=== PATIENT | male | born 1960 | race Caucasian/White ===

== ENCOUNTER 2022-07-15 21:02 | Emergency (ER) | payer OTHER, SELFPAY ==
--- NOTE | 2022-07-15 | ECG_ITS ---
Test Reason : HTN Blood Pressure : / mmHG Vent. Rate : 075 BPM Atrial Rate : 075 BPM P-R Int : 144 ms QRS Dur : 130 ms QT Int : 420 ms P-R-T Axes : 039 -54 099 degrees QTc Int : 469 ms Normal sinus rhythm Possible Left atrial enlargement Right bundle branch block Left anterior fascicular block Bifascicular block Abnormal ECG No previous ECGs available Referred By: Generic ED Physician Electronically Signed By:DARON FREITAS
--- NOTE | ~2022-07-15 | XR_ITS ---
EXAMINATION: XR CHEST CLINICAL INFORMATION: Shortness of breath. COMPARISON: None TECHNIQUE: 2 views of the chest were obtained. FINDINGS: A nodular density overlies the right upper lobe. The lungs are otherwise clear. There are no pleural effusions. The heart and mediastinal structures are unremarkable XR/XR chest 2V IMPRESSION: Nodular density overlying the right upper lobe appears to represent summation artifact of overlapping structures including degenerative changes in the right anterior first anterior costochondral junction. Additional apical lordotic and right oblique views of the chest are recommended to rule out underlying abnormality as no previous study was available for comparison. No acute cardiopulmonary process.
[2022-07-15 21:07] VITALS: BP 190/98; PULSE 92; RESP 16; TEMP 36.4; O2SAT 97; BMI 38.0
[2022-07-15 21:34] LABS: Basophils Absolute Auto 0.1 X10*3/uL (0.0-0.2); Basophils Percent Auto 0.7 % (0-2); Eosinophils Absolute Auto 0.3 X10*3/uL (0.0-0.4); Eosinophils Percent Auto 3.2 % (0-4); Hematocrit 45.8 % (42.0-52.0); Hemoglobin 15.3 g/dl (14.0-18.0); Imm Gran Abs Auto 0.03 X10*3/uL (0.00-0.03); Imm Gran Pct Auto 0.4 % (0.0-0.4); Lymphocytes Absolute Auto 2.3 X10*3/uL (1.2-4.9); Lymphocytes Percent Auto 26.9 % (20-40); MANUAL DIFF FLAG NO; Mean Corpuscular HGB Conc 33.4 g/dl (31.0-36.0); Mean Corpuscular Hemoglobin 29.7 pg (27.0-33.0); Mean Corpuscular Volume 88.9 fL (80.0-98.0); Mean Platelet Volume 9.7 fL (9.4-12.4); Monocytes Absolute Auto 0.9 X10*3/uL (0.1-1.2); Monocytes Percent Auto 10.7 % (2-11); Neutrophils Absolute Auto 4.9 x10*3/uL (2.0-8.3); Neutrophils Percent Auto 58.1 % (45-73); Platelet Count 247 X10*3/uL (160-400); Red Blood Count 5.15 X10*6/uL (4.60-5.80); White Blood Count 8.4 X10*3/uL (4.8-10.8)
[2022-07-15 21:48] LABS: Alanine Aminotransferase 68 U/L (0-40); Albumin Level 3.7 g/dL (3.5-5.0); Alkaline Phosphatase 62 U/L (39-117); Anion Gap 11 (12-20); Aspartate Amino Transferase 51 U/L (5-37); Bilirubin Total 0.6 mg/dL (0.0-1.0); Blood Urea Nitrogen 18 mg/dL (9-16); Carbon Dioxide 26 mmol/L (22-29); Chloride 111 mmol/L (96-108); Creatinine Clr Calc Pharmacy 68.8; Estimated Glomerular Filt Rate 53; Glucose Random 103 mg/dL (60-115); Potassium 4.2 mmol/L (3.3-5.1); Sodium 144 mmol/L (135-145); Total Protein 6.5 g/dL (6.5-8.0)
[2022-07-15 21:57] LABS: Troponin-I High Sensitivity 333.7 ng/L (<3.5-35.0)
--- NOTE | 2022-07-15 22:02 | ED.GENADULT ---
HPI - General Adult General Chief complaint: General Medical Stated complaint: hypertension Time Seen by Provider: 07/15/22 22:01 Source: patient Mode of arrival: ambulatory Limitations: no limitations History of Present Illness HPI narrative: 61-year-old male who presents emergency department for evaluation of elevated blood pressure. The patient states that he has a long history of hypertension but has been off his medications for months since he does not have a primary care doctor. He states that he refilled his lisinopril 3 days prior has been taking 40 mg once a day. He states he last checked his blood pressure 2 days ago at the [facility] in his blood pressure was 200/80. The patient's is currently a patient in our holding unit and the patient states that he was anxious about his blood pressure so he came to the emergency department to be evaluated. Patient states that he has been under increased stress since he is recently homeless and since his is here in the hospital. He told me that he feels short of breath and has dyspnea on exertion. He states that he has been anxious and stressed out due to his living situation. He denied chest pain, neck pain, jaw pain arm pain. He denied fever, chills, rhinorrhea, sore throat, nausea, vomiting. Related Data Allergies Allergy/AdvReac Type Severity Reaction Status Date / Time Sulfa (Sulfonamide Allergy Unknown HIVES Unverified 02/06/20 17:39 Antibiotics) [SULFA(SULFONAMIDE ANTIBIOTICS)] Review of Systems Review of Systems: Yes all other systems are reviewed and are negative [facility] Past Medical History [facility] Narrative: Past medical history: Hypertension. Social history: Patient denies tobacco, alcohol and drug use. He is currently homeless. Social History Social History Alcohol intake: current Alcohol intake frequency: a few times a week Alcohol type: beer Smoked in Last 30 Days: No Use of substances other than those prescribed or required for medical reasons: No Advance Directives: No Advance Directives Information Provided: No Physical Exam ED Vital Signs: Vital Signs - 24 hr 07/15/22 21:07 07/15/22 22:33 Temperature 97.5 F 98.4 F Pulse Rate 92 76 Respiratory Rate 16 22 H Blood Pressure 190/98 H 166/99 H Pulse Oximetry 97 96 Oxygen Delivery Method Room Air Room Air BMI result Body Mass Index 38.0 Const General: cooperative and no acute distress Orientation/consciousness: oriented to person and oriented to place Limitations: no limitations [facility] Head: Yes normal to inspection, Yes normocephalic and Yes atraumatic Ears: external ears normal General nose exam: Normal external nose present Face and sinus: Yes normal facial exam Mouth: Normal oral and palatal mucosa present Throat: Yes posterior oropharynx normal Eyes General: appearance normal, both eyes and all related structures Pupils: Equal, round and reactive pupils present Neck Neck: Yes normal visual inspection, Yes no lymphadenopathy, Yes trachea midline and Yes supple Chest Chest palpation & inspection: normal inspection of the chest and normal palpation of entire chest wall Resp Effort & Inspection: normal respiratory effort and able to speak in complete sentences Auscultation: clear to auscultation bilaterally Cardio Rate: regular rate Rhythm: regular rhythm Heart sounds: S1 normal heart sound present, S2 normal heart sound present and no murmurs GI Inspection: Yes normal to inspection Palpation (GI): Soft to palpation, nontender and no guarding Auscultation: normal bowel sounds General: Yes no CVA tenderness Back/Spine/Pelvis Back: no CVA tenderness Skin General skin exam: no rashes or lesions noted Neuro General: oriented to person and oriented to place Cranial nerves: Yes CN's II-XII intact bilaterally and Yes Equal, round and reactive pupils present Cognition (Neuro): normal cognition Motor exam (neuro): 5/5 motor strength present throughout Extrem General: Yes normal to inspection Psych Appearance: grossly normal Speech and movement: Normal speech and movement present Affect: normal affect Attitude: cooperative Thought process: Normal thought process present Thought content: Normal thought content present Medical Decision Making Medical Decision Making MDM Narrative: 61-year-old male who presents emergency department for evaluation of uncontrolled hypertension, anxiety, shortness of breath. Patient recently restarted his lisinopril for his hypertension, 3 days prior. He last checked his blood pressure 3 days prior and it was 200/80. Patient states he is feeling anxious and short of breath but does not have any chest pain. He has had occasional headache as well. Patient's blood pressure was elevated 190/98 otherwise exam was unremarkable with a normal neurologic exam. My independent interpretation patient's laboratory evaluation is as follows: CBC was normal. CMP was normal. AST and ALT are elevated 51 and 68. Initial troponin was elevated at 333.7. Patient's 12 EKG did not reveal any acute findings. I ordered a repeat troponin for 00:30 hours and a chest x-ray. Patient will be placed on a monitoring and evaluation advisor and O2 saturation monitor until repeat troponin was obtained. 0139: Patient's repeat troponin was unchanged at 349. At this time, I do not think that the patient needs any further treatment and needs to continue taking his lisinopril and follow his blood pressure. The patient will be discharged Differential Diagnosis Differential diagnosis includes but is not limited to essential hypertension, hypertensive urgency, myocardial infarction, pneumonia, viral syndrome, anxiety Lab Data [facility] Lab Attestation statement: I reviewed the patient's lab results. Please see [facility] 07/15/22 21:28 07/15/22 21: Labs: Lab Results 07/15/22 07/15/22 07/15/22 Range/Units 21: 21: 21:28 WBC 8.4 (4.8-10.8) X10*3/uL RBC 5.15 (4.60-5.80) X10*6/uL Hgb 15.3 (14.0-18.0) g/dl Hct 45.8 (42.0-52.0) % MCV 88.9 (80.0-98.0) fL MCH 29.7 (27.0-33.0) pg MCHC 33.4 (31.0-36.0) g/dl RDW 13.0 (11.0-16.0) % Plt Count 247 (160-400) X10*3/uL MPV 9.7 (9.4-12.4) fL Immature Gran % (Auto) 0.4 (0.0-0.4) % Neut % (Auto) 58.1 (45-73) % Lymph % (Auto) 26.9 (20-40) % Antelope % (Auto) 10.7 (2-11) % Eos % (Auto) 3.2 (0-4) % Baso % (Auto) 0.7 (0-2) % Lymph # (Auto) 2.3 (1.2-4.9) X10*3/uL Antelope # (Auto) 0.9 (0.1-1.2) X10*3/uL Eos # (Auto) 0.3 (0.0-0.4) X10*3/uL Baso # (Auto) 0.1 (0.0-0.2) X10*3/uL Abs Immat Gran (auto) 0.03 (0.00-0.03) X10*3/uL Absolute Neuts (auto) 4.9 (2.0-8.3) x10*3/uL Absolute Nucleated RBC 0.000 (0.0-0.012) X10*3/uL Nucleated RBC % (auto) 0.0 (0.0-0.2) /100WBC Sodium 144 (135-145) mmol/L Potassium 4.2 (3.3-5.1) mmol/L Chloride 111 H (96-108) mmol/L Carbon Dioxide 26 (22-29) mmol/L Anion Gap 11 L (12-20) BUN 18 H (9-16) mg/dL Creatinine 1.36 (0.5-1.4) mg/dL Estim Creat Clear Calc 68.8 Estimated GFR 53 Random Glucose 103 (60-115) mg/dL Calcium 9.0 (8.4-10.2) mg/dL Total Bilirubin 0.6 (0.0-1.0) mg/dL AST 51 H (5-37) U/L ALT 68 H (0-40) U/L Alkaline Phosphatase 62 (39-117) U/L Troponin I High Sens 333.7 H* (<3.5-35.0) ng/L Total Protein 6.5 (6.5-8.0) g/dL Albumin 3.7 (3.5-5.0) g/dL 07/16/22 Range/Units 00:46 WBC (4.8-10.8) X10*3/uL RBC (4.60-5.80) X10*6/uL Hgb (14.0-18.0) g/dl Hct (42.0-52.0) % MCV (80.0-98.0) fL MCH (27.0-33.0) pg MCHC (31.0-36.0) g/dl RDW (11.0-16.0) % Plt Count (160-400) X10*3/uL MPV (9.4-12.4) fL Immature Gran % (Auto) (0.0-0.4) % Neut % (Auto) (45-73) % Lymph % (Auto) (20-40) % Antelope % (Auto) (2-11) % Eos % (Auto) (0-4) % Baso % (Auto) (0-2) % Lymph # (Auto) (1.2-4.9) X10*3/uL Antelope # (Auto) (0.1-1.2) X10*3/uL Eos # (Auto) (0.0-0.4) X10*3/uL Baso # (Auto) (0.0-0.2) X10*3/uL Abs Immat Gran (auto) (0.00-0.03) X10*3/uL Absolute Neuts (auto) (2.0-8.3) x10*3/uL Absolute Nucleated RBC (0.0-0.012) X10*3/uL Nucleated RBC % (auto) (0.0-0.2) /100WBC Sodium (135-145) mmol/L Potassium (3.3-5.1) mmol/L Chloride (96-108) mmol/L Carbon Dioxide (22-29) mmol/L Anion Gap (12-20) BUN (9-16) mg/dL Creatinine (0.5-1.4) mg/dL Estim Creat Clear Calc Estimated GFR Random Glucose (60-115) mg/dL Calcium (8.4-10.2) mg/dL Total Bilirubin (0.0-1.0) mg/dL AST (5-37) U/L ALT (0-40) U/L Alkaline Phosphatase (39-117) U/L Troponin I High Sens 349.0 H* (<3.5-35.0) ng/L Total Protein (6.5-8.0) g/dL Albumin (3.5-5.0) g/dL Independent Interpretation I performed an independent interpretation of an: EKG and Plain X-Ray Interpretation: My independent interpretation patient's two-view chest x-ray is as follows: No acute disease My independent interpretation of the patient's 12 EKG done at 21:17 is as follows: Normal sinus rhythm with a rate of 75, normal AL interval, prolonged QRS duration of 130 milliseconds, normal QTC interval , no ST segment elevation, no ST segment depression, no T-wave abnormalities, right bundle-branch block, no PVCs, no PACs. No old EKG for comparison. Radiology Impression Discussion of test interpretation with radiology: I have reviewed the radiologist's reading. Radiologist Impression: XR chest 2V IMPRESSION: Nodular density overlying the right upper lobe appears to represent summation artifact of overlapping structures including degenerative changes in the right anterior first anterior costochondral junction. Additional apical lordotic and right oblique views of the chest are recommended to rule out underlying abnormality as no previous study was available for comparison. No acute cardiopulmonary process. Dictated By:Justice Mora MDSigned By:<Electronically signed by Justice Mora MD in OV>07/15/22 3085 Discharge Plan Discharge Clinical Impression: Benign essential hypertension, Anxiety Patient Disposition: Home, Self-Care Additional Instructions: Your blood work was unremarkable. Your chest x-ray was normal. Your 12 EKG was unremarkable. Continue taking your lisinopril daily. It will take anywhere from 4-6 weeks for this medication to work at lowering her blood pressure. Follow-up with your doctor in 2 days. Please return to the emergency department if your symptoms get worse or if you develop any symptoms that are concerning to you.
[2022-07-15 22:33] VITALS: BP 166/99; PULSE 76; RESP 22; TEMP 36.9; O2SAT 96
== END 2022-07-16 02:16 | disposition home or self-care (01) ==
PROVIDERS: Emergency Provider Emergency Medicine Emergency Medical Services
DX: F41.1 Generalized anxiety disorder (principal); I10 Essential (primary) hypertension; R06.02 Shortness of breath; Z79.899 Other long term (current) drug therapy
CPT/HCPCS: 36415; 71046; 80053; 84484; 85025; 93005; 99284

== ENCOUNTER 2022-08-08 22:35 | Emergency (ER) | payer OTHER, SELFPAY ==
[2022-08-08 22:44] VITALS: BP 145/80; BP 159/83; PULSE 80; PULSE 86; RESP 18; TEMP 36.9; O2SAT 97; BMI 36.5
[2022-08-08 22:45] VITALS: BP 145/79; PULSE 81; RESP 19; TEMP 36.2; O2SAT 97
--- NOTE | 2022-08-08 23:53 | PC.NURSE ---
Patient alert and oriented. CIWA scale 7. Provider notified. Patient denies SI/HI and declines detox at this time. Will continue to follow plan of care
[2022-08-09] MEDS: Butalb/Acetamin/Caff 50/325/40 TABLET 1 TAB PO (00:02)
[2022-08-09] MEDS: LORazepam 1 MG TABLET 2 MG PO (00:02)
[2022-08-09 00:45] VITALS: BP 152/82; PULSE 85; RESP 18; TEMP 36.3; O2SAT 98
--- NOTE | 2022-08-09 01:55 | ED.ALCOHOL ---
HPI - Alcohol General Chief Complaint: ETOH/Substance Use Stated Complaint: dizziness/ ETOH Time Seen by Provider: 08/08/22 23:32 Source: patient Mode of arrival: ambulatory Limitations: no limitations History of Present Illness HPI narrative: Patient alcoholic had 5 large beer prior to arrival felt little dizzy also complaining of headache patient is homeless depressed denies any SI does not want detox feels stable otherwise no head injury no fall patient does take Fioricet sometimes in the past for the headache, headache is generalized with light sensitivity no nausea no vomiting no fever Related Data Allergies Allergy/AdvReac Type Severity Reaction Status Date / Time Sulfa (Sulfonamide Allergy Unknown HIVES Unverified 02/06/20 17:39 Antibiotics) [SULFA(SULFONAMIDE ANTIBIOTICS)] Review of Systems Review of Systems: Yes all other systems are reviewed and are negative [facility] Social History Social History Alcohol intake: current Alcohol intake frequency: a few times a week Alcohol type: beer Smoked in Last 30 Days: No Use of substances other than those prescribed or required for medical reasons: Yes Substance Use Type: Marijuana Substance Use Frequency: Occasionally Last Used Substance: Days (ago) Any prior treatment program specific to substance use: No Advance Directives: No Advance Directives Information Provided: Yes Physical Exam ED Vital Signs: Vital Signs - 24 hr 08/08/22 22:44 08/08/22 22:45 08/09/22 00:45 Temperature 98.4 F 97.1 F 97.3 F Pulse Rate 80 81 85 Respiratory Rate 18 19 18 Blood Pressure 145/80 H 145/79 H 152/82 H Pulse Oximetry 97 98 Oxygen Delivery Method Room Air Room Air BMI result Body Mass Index 36.5 Appearance: Alert. Oriented X3. No acute distress. ETOH++ Eyes: PERRLA, No Nystagmus ENT: Pharynx normal. Oral Mucosa moist Neck: Normal inspection. Neck supple. CVS: Normal heart rate and rhythm. Pulses normal. Respiratory: No respiratory distress. Equal air entry bilateral, no wheezing/rales/rhonchi Abdomen: Soft and nontender. Bowel sounds are present, no mass palpable, no CVA tenderness Skin: Skin warm and dry. Normal skin color. Normal skin turgor. Extremities: No lower extremity edema. No calf tenderness Neuro: Oriented X 3. No motor deficit. No sensory deficit.No cerebellar signs , cranial nerves II-XII intact Medical Decision Making Medical Decision Making MDM Narrative: Patient oxygenated sober enough to ambulate came with his who is also homeless does not want detox no signs of meningitis no signs of significant ASSISTANT MANAGER/EMBALMER pathology patient feeling much better after Fioricet will discharge patient home Medications Administered Discontinued Medications Generic Name Dose Route Start Last Admin Trade Name Freq PRN Reason Stop Dose Admin Acetaminophen/Butalbital/Caffeine 1 tab 08/08/22 23:54 08/09/22 00:02 Butalb/Acetamin/Caff 50/325/40 Tablet PO 08/08/22 23:55 1 tab ONCE ONE Administration Lorazepam 2 mg 08/08/22 23:54 08/09/22 00:02 Lorazepam 1 Mg Tablet PO 08/08/22 23:55 2 mg ONCE ONE Administration Discharge Plan Discharge Clinical Impression: Alcoholic intoxication Patient Disposition: Home, Self-Care Instructions: Alcohol Intoxication (ED) Additional Instructions: Stop drinking alcohol Follow-up with detox care as advised Interventions: [place]-Suicide Risk Severity Scale Last Done: 08/08/22 23:42
[2022-08-09 02:16] VITALS: BP 147/80; PULSE 83; RESP 18; TEMP 36.3; O2SAT 98
[2022-08-09 04:15] VITALS: BP 142/75; PULSE 82; RESP 16; O2SAT 98
[2022-08-09 05:30] VITALS: BP 148/80; PULSE 83; RESP 16; O2SAT 98
== END 2022-08-09 06:51 | disposition home or self-care (01) ==
PROVIDERS: Emergency Provider Emergency Medicine Emergency Medical Services; PCP Family Medicine
DX: F10.220 Alcohol dependence with intoxication, uncomplicated (principal); Y90.9 Presence of alcohol in blood, level not specified; R42 Dizziness and giddiness; R51.9 Headache, unspecified; F32.A Depression, unspecified; F12.90 Cannabis use, unspecified, uncomplicated; Z59.00 Homelessness unspecified; Z79.899 Other long term (current) drug therapy
CPT/HCPCS: 99284; 99285

== ENCOUNTER 2022-08-09 08:03 | Emergency (ER) | payer OTHER, SELFPAY ==
[2022-08-09 08:48] VITALS: BP 179/97; PULSE 108; RESP 18; TEMP 36.5; O2SAT 95
[2022-08-09 09:01] VITALS: BP 179/97; PULSE 108; RESP 18; TEMP 36.5; O2SAT 95; BMI 38.0
--- NOTE | 2022-08-09 09:45 | PC.NURSE ---
patient a&ox3, standing/assisting with her demands, patient shows no symptoms of sob, dizziness, ambulating in room with steady gait.
--- NOTE | 2022-08-09 09:47 | ED.GENADULT ---
HPI - General Adult General Chief complaint: General Medical Stated complaint: dizziness Time Seen by Provider: 08/09/22 09:31 Source: patient and family (Significant other at bedside) Mode of arrival: ambulatory Limitations: no limitations History of Present Illness HPI narrative: 61-year-old male presenting with his significant other reporting that they are homeless and they have no were else to go. He denies any complaints at this time. He was just seen here last night and he was cleared and discharged. MD complaint: Homelessness no where to go Onset (ago): year(s) Related Data Allergies Allergy/AdvReac Type Severity Reaction Status Date / Time Sulfa (Sulfonamide Allergy Unknown HIVES Unverified 02/06/20 17:39 Antibiotics) [SULFA(SULFONAMIDE ANTIBIOTICS)] Review of Systems Review of Systems: Constitutional : No Weight loss, No Fever, No Chills, No Night Sweats, No Fatigue, No Malaise ENT/Mouth : No Hearing loss, No Ear Pain, No Nasal Congestion, No Sinus Pain, No Hoarseness, No sore throat, No Rhinorrhea, No Swallowing Difficulty Eyes: No Eye Pain, No Swelling, No Redness, No Foreign Body, No Discharge, No Vision Changes Cardiovascular : No Chest Pain, No SOB, No Dyspnea on Exertion, No Orthopnea, No Edema, No Palpitations Respiratory : No Cough, No Sputum, No Wheezing, No Smoke Exposure, No Dyspnea Gastrointestinal : No Nausea, No Vomiting, No Diarrhea, No Constipation, No abdominal Pain, No Hematochezia, No Melena Genitourinary : no irregular bleeding, No Dysuria, No Urinary Frequency, No Hematuria, No Urinary Incontinence, No Urgency, No Flank Pain, No Urinary Flow Changes, No Hesitancy Musculoskeletal : No joint pain, No Myalgias, No Joint Swelling Skin : No Skin Lesions, No rash Neuro : No Weakness, No Numbness, No Paresthesias, No Loss of Consciousness, No Dizziness, No Headache Psych : No Anxiety/Panic, No Depression, No SI/HI/AH/VH, No Social Issues, Heme/Lymph: No Bruising, No Bleeding,No Lymphadenopathy Endocrine : No Polyuria, No Polydipsia, No Temperature Intolerance Yes all other systems are reviewed and are negative [facility] Past Medical History Attestation statement: The following information was validated with the patient. Source: old records reviewed, obtained from family and nursing notes reviewed Social History Social History Alcohol intake: current Alcohol intake frequency: a few times a week Alcohol type: beer Substance Use Type: Marijuana Advance Directives: No Advance Directives Information Provided: Yes Physical Exam ED Vital Signs: Vital Signs - 24 hr 08/09/22 08:48 08/09/22 09:01 Temperature 97.7 F 97.7 F Pulse Rate 108 H 108 H Respiratory Rate 18 18 Blood Pressure 179/97 H 179/97 H Pulse Oximetry 95 95 Oxygen Delivery Method Room Air Room Air BMI result Body Mass Index 38.0 Patient mildly hypertensive 179/97 mildly tachycardic at 108 otherwise all other vitals are within normal limits. Appearance: Alert. Oriented X3. No acute distress. Head: Normal external exam. Normocephalic. Atraumatic. Able to rotate head bilaterally. Eyes: PERRLA. EOMI. No nystagmus noted. Conjunctiva and sclera normal. Eyelids normal. Corneal reflex normal. ENT: EAC normal. TM's Normal. Hearing normal. Pharynx normal. Uvula midline. tongue midline. Moist mucous membranes. No trismus noted. No drooling noted. No muffled voice noted. No nystagmus noted. Neck: Normal inspection. Neck supple. FROM. No adenopathy. Trachea midline. Thyroid Normal. No meningeal signs. No neck mass noted. CVS: Normal heart rate and rhythm. Heart sound normal. No murmurs noted. Pulses normal throughout. Respiratory: No respiratory distress. Painless inspiration. Breath sounds normal. No wheezes/rales/rhonchi noted. Chest nontender. No accessory muscle usage noted or decreased air movement noted. Abdomen: Soft and nontender. Bowel sounds normal in all 4 quadrants. No distention noted. No organomegaly noted. No visible injury noted. Back: No CVA tenderness. Full range of motion noted. Skin: Skin warm and dry. Normal skin color. Normal skin turgor. No rashes/lesions/lacerations noted. Extremities: No lower extremity edema. Extremities exhibit normal range of motion. Extremities nontender. Able to shrug shoulders bilaterally and keep up against resistance. Neuro: Oriented X 3. No motor deficit. No sensory deficit. Reflexes normal. Moving all extremities. No focal motor deficits. Cranial nerves II-XI intact bilaterally. Facial strength normal. Normal cognition. Speech normal. Gait normal. Strength 5/5 throughout. No pronator drift. No tremor noted. No fasciculations noted. No rigidity noted. Muscle tone normal throughout. No asterixis noted. [id number] test normal. Heel to montemayor test normal. Tandem gait normal. Does not sway with eyes open. Romberg test negative. Rapid alternating movement upper extremity normal. Rapid alternating movement lower extremity normal. Hand drop from overhead Misses face. NIHSS score 0. Course Course Course Narrative: I explained to the patient that unfortunately we cannot keep him here to be admitted or in observation for homelessness. I explained to him that when he was seen here last night he was given a list of shelters that he can go to. I also explained to him that if he does not want to stay in a [facility] during the day he can possibly go to the mall and hang out there but the emergency department is used for emergencies. Therefore no labs or imaging indicated as patient reports he feels completely fine. He has a normal steady gait. No deficits are noted. Was already cleared last night. Therefore he will be discharged. Medical Decision Making Independent Historian Clinical information obtained from an independent historian. History obtained from or confirmed by: Spouse External Record Review Prior visit/labs/radiology and prior notes that are accessible in our system reviewed by myself Discharge Plan Discharge Clinical Impression: Homeless Patient Disposition: Home, Self-Care Referrals: Physician,None [Primary Care Provider] - (your pcp as needed)
== END 2022-08-09 10:17 | disposition home or self-care (01) ==
PROVIDERS: Emergency Provider Emergency Medicine
DX: R42 Dizziness and giddiness (principal); Z59.00 Homelessness unspecified
CPT/HCPCS: 99283